=== PATIENT | female | born 1980 | race Caucasian/White ===

== ENCOUNTER 2018-02-06 17:48 | Emergency (ER) | payer SELFPAY ==
[~2018-02-06 17:48] MED LIST: ESC10 PO; ZOLP-350 PO
[2018-02-06] MEDS ORDERED: BUPR-472 PO (17:57)
[2018-02-06] MEDS ORDERED: LORazepam 1 MG TAB PO ONE (18:05)
[2018-02-06] MEDS ORDERED: diphenhydrAMINE 25 MG CAP PO ONE (18:05)
[2018-02-06] MEDS ORDERED: OLANZapine ZYDIS ODT 5MG TABDP PO ONE (18:05)
--- NOTE | 2018-02-06 18:09 | ER Report ---
History and Physical Time Seen By MD: 18:04 Hx. of Stated Complaint: anxiety for a couple hours. lack of sleep over the last couple days from a camping trip. had 2 tylenol pm about 3pm today HPI/ROS CHIEF COMPLAINT: Anxiety HISTORY OF PRESENT ILLNESS: 37-year-old female lesbian relationship brought in by her significant other. They've been camping and pulling softball weekend. Patient's been partying and not sleeping. She hasn't slept in 2 days. She is overwrought with emotion. She denies drug or alcohol abuse. She denies withdrawal from her prescription medicines. Significant other and. Patient admits to previous similar episodes of overt anxiety, the last episode proximal. We 10 years ago. Patient denies suicidal ideation. Patient denies homicidal ideation. REVIEW OF SYSTEMS: Respiratory: No cough, no dyspnea. Cardiovascular: No chest pain, no palpitations. Gastrointestinal: No vomiting, no abdominal pain. Musculoskeletal: No back pain. Allergies: Coded Allergies: No Known Drug Allergies (Unverified , 02/06/18) Home Meds Active Scripts Lorazepam (ATIVAN) 1 Mg Tablet, 1-2 MG PO Q6-8H Y for ANXIETY, #10 Prov:MACARIOPEDRITOVasile Faye DO 02/06/18 Reported Medications Bupropion Hcl (WELLBUTRIN XL) 150 Mg Tab.er.24h, 150 MG PO QDAY, TAB 02/06/18 Escitalopram Oxalate (Lexapro) 10 Mg Tab, 10 MG PO QDAY, 0 Refills START WITH 1/2 TAB FOR 7 DAYS, THEN 1 TAB DIALY 08/26/08 [None] No Conflict Check, 0 Refills 08/26/08 Discontinued Reported Medications Zolpidem Tartrate (Ambien) 10 Mg Tablet, 10 MG PO QHS, 0 Refills 08/26/08 Past Medical/Surgical History Prior anxiety attack. 10 years ago Reviewed Nurses Notes: Yes Old Medical Records Reviewed: Yes Hx Substance Use Disorder: No Hx Alcohol Use: No Constitutional Vital Sign - Last 24 Hours 02/06/18 02/06/18 17:51 19:22 Temp 99.2 Pulse 95 Resp 26 12 B/P (MAP) 140/95 116/71 (86) Pulse Ox 95 94 O2 Delivery Room Air Room Air Physical Exam General Appearance: The patient is alert, has no immediate need for airway protection and no current signs of toxicity. Vital signs stable, afebrile, pulse ox normal, agitated, anxious, talkative, tearful, upset HEENT: Pupils equal and round no injection. Oropharynx without redness or exudate, mucous. Membranes are moist Respiratory: Chest is non tender, lungs are clear to auscultation. Cardiac: regular rate and rhythm Gastrointestinal: Abdomen is soft and non tender, no masses, bowel sounds normal. Musculoskeletal: Neck: Neck is supple and non tender. No thyromegaly. No meningismus Extremities have full range of motion and are non tender. Skin: No rashes or lesions. DIFFERENTIAL DIAGNOSIS: After history and physical exam differential diagnosis was considered for depression including functional and major depression, situational depression, medication side effect, drugs and alcohol abuse. Medical Decision Making ED Course/Re-evaluation ED Course Patient was admitted to an examination room. H&P was done. The differential diagnoses was considered. On clinical examination. Patient's quite agitated and anxious. Patient denies suicidal ideation. She's medicated with Ativan 2 mg, Zyprexa 10 mg and Benadryl 25 mg. On reevaluation, she is much calmer. She 'll be discharged home for a good night sleep. She is advised to follow-up with mental health. Decision to Disposition Date: Feb 06, 2018 Decision to Disposition Time: 18:54 Depart Departure Latest Vital Signs Vital Signs Date Time Temp Pulse Resp B/P (MAP) Pulse Ox O2 Delivery O2 Flow Rate FiO2 02/06/18 19:22 12 116/71 (86) 94 Room Air 02/06/18 17:51 99.2 95 Impression: Primary Impression: Anxiety Additional Impression: Panic attack Condition: Improved Disposition: HOME OR SELF-CARE Referrals: [facility] MD [facility] New Scripts Lorazepam (ATIVAN) 1 Mg Tablet 1-2 MG PO Q6-8H Y for ANXIETY, #10 Prov: TARUN SORTO DO 02/06/18 Patient Instructions: Anxiety (ED), Panic Attack (ED) Additional Instructions: Follow up with [facility] or your primary care physician Problem Qualifiers TARUN SORTO DO Feb 06, 2018 18:09
[2018-02-06] MEDS ORDERED: LORA-1456 PO (18:59)
[2018-02-06 19:22] VITALS: BP 116/71
== END 2018-02-06 19:21 | disposition home or self-care (01) ==
LOC: ER 18:06
DX: F41.9 Anxiety disorder, unspecified (principal); F41.0 Panic disorder [episodic paroxysmal anxiety]
CPT/HCPCS: 99283; Q0163